=== PATIENT | female | born 1955 | race Caucasian/White ===

== ENCOUNTER 2016-08-05 13:57 | Outpatient (CLI) | payer OTHER ==
--- NOTE | 2016-08-05 16:06 | Diagnostic Imaging Report ---
BRIAN LUNA [facility] [address] [facility] [address] [address] Report Submission Date: Aug 05, 2016 3:28:48 PM CRUSHING MILL OPERATOR Patient Study Name: STERLING PLUMMER Date: Aug 05, 2016 2:12:51 PM CRUSHING MILL OPERATOR Modality Type: CR Gender: F Description: LOWER EXTREMITY : 59 Institution: [facility] Physician: BRIAN LUNA Left tibia fibula 2 views History: Pain after fall 10 days ago Findings: Soft tissue swelling is observed in the calf without fracture, dislocation, arthropathy, or focal bone lesion. Electronically signed on Aug 05, 2016 3:28:48 PM CRUSHING MILL OPERATOR by: Nilton SKY
== END 2016-08-05 14:00 ==
LOC: RAD 13:57
PROVIDERS: ATTEND Physician Assistant
DX: M79.662 Pain in left lower leg (principal); W19.XXXA Unspecified fall, initial encounter
CPT/HCPCS: 73590

== ENCOUNTER 2016-08-14 20:34 | Emergency (ER) | payer OTHER ==
--- NOTE | 2016-08-14 21:23 | ED Physician Documentation ---
General Adult - HISTORIAN Historian: patient, spouse - HPI Stated Complaint: shortness of breath, feeling cold Chief Complaint: General Adult Additional Information: Became "cold" whille playing cards at her mother's yesterday. This has continued. says she worked outside yesterday and it was cold. Today she has felt SOB as well as cold. No fever or cough. Has had these episodes i nthe past. Says she is here because famiy made her come. Burt sbeen on Bactrim since for cellulitis LLE. Son is allergic and she thinks she may also be allergic to it because of her symptoms yesterday and today. Says Bactrim makes her eyes feel funny and can't explain that further. Smoker. Denies HX panic attacks. 97% on ambient air. - ROS CONST: no problems, other ( says she was shaking when she got home last night.) - PAST HX Past History: other ("migratory arthritis") Surgeries/Procedures: BTL Allergies/Adverse Reactions: Allergies Allergy/AdvReac Type Severity Reaction Status Date / Time No Known Allergies Allergy Verified 08/14/16 20:49 Home Medications: Ambulatory Orders Medication Instructions Recorded Sulfamethoxazole/Trimethoprim 1 each PO BID 08/14/16 [Bactrim Ds] - SOCIAL HX Smoking History: cigarettes (since 17 y/o. 1/2 PPD now. Doesn't remember previous.) Alcohol Use: none Drug Use: none - FAMILY HX Family History: No - VITAL SIGNS Vital Signs: Vital Signs Temp Pulse Resp BP Pulse Ox 98.7 F 100 H 16 142/80 97 08/14/16 20:35 08/14/16 20:35 08/14/16 20:35 08/14/16 20:35 08/14/16 20:35 - REVIEWED ASSESSMENTS Nursing Assessment Reviewed: Yes Vitals Reviewed: Yes Progress - Progress Progress: EKG: Sinus tach, 107 BPM Chest -two views CLINICAL HISTORY: Shortness of breath. Tiredness. FINDINGS: Examination of the chest in PA and lateral views with no prior film for comparison demonstrates the lungs to be clear. Cardiovascular and mediastinal silhouettes are within normal limits. Monitor leads superimpose the chest. IMPRESSION: No active disease. Electronically signed on Aug 14, 2016 9:43:06 PM CRUSHER AND BLENDER OPERATOR by: Christos Raymundo Patient allowed one IV stick only in her hand. When that was unsuccessful, she refused further attemps to obtain blood. Urine clean, sp gr 1.020 ED Results Lab/Radiology - Orders Orders: ED Orders Category Date Time Status Continuous EKG monitoring Q1H Care 08/14/16 21:16 Ordered Continuous Pulse Oximetry Q1H Care 08/14/16 21:[address] Saline Lock/IV Now Care 08/14/16 21:16 Ordered CHEST P.A.&LAT 2 VIEWS [RAD] Stat Exams 08/14/16 Ordered CBC/PLATELET/DIFF Routine Lab 08/14/16 Ordered CMP [CMP] Routine Lab 08/14/16 Ordered UA [URINALYSIS] Routine Lab 08/14/16 Ordered EKG WITH COMPARISON Stat Ther 08/14/16 Ordered General Adult Physical Exam - PHYSICAL EXAM GENERAL APPEARANCE: Defiant, hostile at times, little eye contact EENT: eye inspection normal, ENT inspection normal (except poor dentition) NECK: normal inspection, supple RESPIRATORY: no resp distress, breath sounds normal (decreased throughout??) CVS: reg rate & rhythm, heart sounds normal ABDOMEN: soft (obese), normal bowel sounds RECTAL: deferred BACK: normal inspection, no CVA tenderness SKIN: warm/dry, normal color EXTREMITIES: no evidence of injury, other (LLE anterior erythema, well healed scars distal to knee, 1+ swelling ankle and dorsal foot) NEURO: CN's nml as tested, motor nml, sensation nml Discharge Clincal Impression: Shortness of breath Additional Instructions: Follow up with your provider as needed. Home Medications: Ambulatory Orders Sulfamethoxazole/Trimethoprim [Bactrim Ds] 1 each PO BID 08/14/16 Condition: Good Disposition: 01 HOME, SELF-CARE Decision to Admit: NO Decision Time: 22:00
--- NOTE | 2016-08-14 21:47 | Diagnostic Imaging Report ---
JANELL FOSTER~ [facility] [address] [facility] [address] [place], [place]. [address] ~ ~ ~ ~ Report Submission Date: Aug 14, 2016 9:43:06 PM MANAGER INFUSION Patient ~ Study Name: STERLING PLUMMER ~ Date: Aug 14, 2016 9:31:54 PM MANAGER INFUSION ~ Modality Type: CR Gender: F ~ Description: CHEST : 59 ~ Institution: [facility] Physician: JANELL FOSTER ~ ~ ~ ~ Chest -two views CLINICAL HISTORY: ~ Shortness of breath. ~Tiredness. FINDINGS: ~ Examination of the chest in PA and lateral views with no prior film for comparison demonstrates the lungs to be clear. ~Cardiovascular and mediastinal silhouettes are within normal limits. ~Monitor leads superimpose the chest. IMPRESSION: ~ No active disease. ~ Electronically signed on Aug 14, 2016 9:43:06 PM MANAGER INFUSION by: Christos SKY
[2016-08-14 22:25] VITALS: BP 128/61
[2016-08-15 05:05] LABS: AMPHETAMINE NEGATIVE ng/mL (<1000); APPEARANCE,URINE CLEAR (CLEAR); BARBITURATES NEGATIVE ng/mL (<300); CANNABINOIDS NEGATIVE ng/mL (<50); COCAINE NEGATIVE ng/mL (<150); COLOR,URINE YELLOW (YELLOW); METHAMPHETAMINE NEGATIVE ng/mL (<1000); METHYLENEDIOXYMETHAMPHETAMINE NEGATIVE ng/mL (<500); OCCULT BLOOD,URINE TRACE-INTACT (NEGATIVE); PH URINE 5.5 (5.0 - 8.0); UROBILINOGEN URINE 0.2 Eu (0.2-1.0)
== END 2016-08-14 22:00 | disposition home or self-care (01) ==
LOC: ED 20:34
DX: R06.02 Shortness of breath (principal)
CPT/HCPCS: 71020; 80377; 81002; 81025; 99283; G0481; S1016

== ENCOUNTER 2016-09-07 10:46 | Outpatient (CLI) | payer OTHER ==
--- NOTE | 2016-09-07 14:01 | Diagnostic Imaging Report ---
BRIAN LUNA [facility] [address] [facility] [address] [address] Report Submission Date: Sep 07, 2016 1:45:46 PM CDT Patient Study Name: STERLING PLUMMER Date: Sep 07, 2016 10:52:11 AM CDT Modality Type: CR Gender: F Description: LOWER EXTREMITY : 59 Institution: [facility] Physician: BRIAN LUNA Left tibia fibula two views HISTORY: Pain after injury 1 month ago FINDINGS: The left tibia and fibula are intact without fracture, dislocation, arthropathy , or focal bone lesion. Proximal pretibial soft tissue swelling is present. IMPRESSION: Pretibial soft tissue swelling. Electronically signed on Sep 07, 2016 1:45:46 PM CDT by: Nilton SKY
== END 2016-09-07 10:47 ==
LOC: RAD 10:46
PROVIDERS: ATTEND Physician Assistant
DX: S89.92XD Unspecified injury of left lower leg, subsequent encounter (principal); X58.XXXD Exposure to other specified factors, subsequent encounter; Y93.9 Activity, unspecified; Y99.9 Unspecified external cause status
CPT/HCPCS: 73590